=== PATIENT | male | born 1965 | race Caucasian/White ===

== ENCOUNTER → 2017-01-15 | Outpatient (CLI) | payer BC | LOC: FIMAGING 12:06 | PROVIDERS: ATTEND Surgery | DX: C43.4 Malignant melanoma of scalp and neck (principal) | CPT/HCPCS: 78195; A9520 ==

== ENCOUNTER → 2017-03-17 | Outpatient (CLI) | payer BC | LOC: FIMAGING 16:22 | PROVIDERS: ATTEND Family Medicine | DX: M48.55XS Collapsed vertebra, not elsewhere classified, thoracolumbar region, sequela of fracture (principal); M89.38 Hypertrophy of bone, other site; M48.061 Spinal stenosis, lumbar region without neurogenic claudication; M46.46 Discitis, unspecified, lumbar region ==